=== PATIENT | male | born 1995 | race Caucasian/White ===

== ENCOUNTER 2025-09-24 12:13 | Emergency (ER) | payer BC, SELFPAY ==
[2025-09-24] MEDS ORDERED: Ondansetron PF 4 MG/2 ML Vial ONE (13:01)
[2025-09-24 13:13] LABS: Hematocrit 60.0 % (42.0-52.0); Hemoglobin 18.5 g/dL (14.0-18.0); MDiff Complete? YES; Mean Corpuscular Hemoglobin 28.9 pg (27.0-31.0); Mean Corpuscular Volume 93.7 fl (78.0-98.0); Platelet Adequacy Comment Appears Adequate; Platelet Count 301 10x3/uL (130-400); Red Blood Cell (RBC) Count 6.41 mill/uL (4.70-6.10); White Blood Cell (WBC) Count 5.9 10x3/uL (4.8-10.8)
[2025-09-24 13:18] LABS: ALT (SGPT) 44 U/L (Less than 45); AST (SGOT) 39 U/L (11-34); Albumin 4.4 g/dL (3.1-4.5); Alkaline Phosphatase 74 U/L (40-110); Anion Gap 19 mmol/L (10-20); BUN (Urea Nitrogen) 11 mg/dL (8.9-20.6); Bilirubin, Total 0.4 mg/dL (0.3-1.2); Calc. Creatinine Clearance 0 mL/min (70-130); Calcium 9.3 mg/dL (7.8-10.44); Carbon Dioxide 24 mmol/L (22-29); Chloride 105 mmol/L (98-107); Globulin 3.6 g/dL (2.4-3.5); Glucose 111 mg/dL (70-105); Potassium 4.1 mmol/L (3.5-5.1); Sodium 144 mmol/L (136-145)
[2025-09-24] MEDS ORDERED: Metoclopramide HCl 10 MG (2 mL) VIAL ONE (14:05)
== END 2025-09-24 14:54 | disposition home or self-care (01) ==
LOC: MADERS 12:13
DX: R00.2 Palpitations (principal); R11.0 Nausea; F17.220 Nicotine dependence, chewing tobacco, uncomplicated
CPT/HCPCS: 71045; 80053; 84443; 85025; 85379; 93005; 96374; 96375; J2405; J2765; J7030